=== PATIENT | male | born 1930 | race Caucasian/White ===

== ENCOUNTER 2016-09-27 18:53 | Inpatient (IN) | payer MEDICARE, OTHER ==
[~2016-09-27] VITALS: Ht 177.8 cm; Wt 69.4 kg
[2016-09-27] VITALS (7 sets, daily range): BP systolic 82–123; BP diastolic 43–82
--- NOTE | 2016-09-27 19:00 | NUR ---
PATIENT BIB RA FROM [facility] D/T LOW OXYGEN SATURATION AND RAPID HEART RATE ON MONITOR. PATIENT IS A/OX 2, BREATHING EVEN AND UNLABORED. OXYGEN SATURATION AROUND 89 ON ROOM AIR. 5 L O2 APPLIED VIA NC. SAFETY AND COMFORT MEASURS IN PLACE. NEW IV STARTED ON RAC, 18 G. BLOOD DRAWN AND SENT TO LAB. WILL CONTINUE TO MONITOR.
--- NOTE | 2016-09-27 19:10 | NUR ---
OXYGEN SATURATION AT 100% ON 5L/MIN
--- NOTE | 2016-09-27 19:12 | NUR ---
REPORT GIVEN TO TANVIR FIELDS FOR RENNY.
[2016-09-27 19:27] LABS: BASOPHILS % (AUTO) 0.2 % (0.0-2.0); HEMATOCRIT 39 % (39-51); HEMOGLOBIN 12.6 g/dL (13.5-17.5); LYMPHOCYTES # (AUTO) 0.5 /CMM (0.8-4.8); LYMPHOCYTES % (AUTO) 2.8 % (20.0-44.0); MEAN CORPUSCULAR HEMOGLOBIN 29 PG (26.0-33.0); MEAN CORPUSCULAR HGB CONC 33 g/dl (31.0-36.0); MEAN CORPUSCULAR VOLUME 91 fL (80-96); MONOCYTES # (AUTO) 0.2 /CMM (0.1-1.30); MONOCYTES % (AUTO) 0.9 % (2.0-12.0); NEUTROPHILS # (AUTO) 17.6 /CMM (1.8-8.9); NEUTROPHILS % (AUTO) 96.1 % (43.0-81.0); PLATELET COUNT (AUTO) 266 /CMM (150-450); RDW COEFFICIENT OF VARIATION 15.4 (11.5-15.0); WHITE BLOOD COUNT (AUTO) 18.3 K/uL (4.3-11.0)
[2016-09-27 19:28] LABS: CALCIUM, SERUM 8.5 mg/dL (8.5-10.1); CARBON DIOXIDE 37 mmol/L (21-32); CHLORIDE 93 mmol/L (98-107); CREATININE 1.7 mg/dL (0.6-1.3); GLUCOSE 113 mg/dL (74-106); POTASSIUM 5.3 mmol/L (3.5-5.1); SODIUM SERUM 132 mmol/L (136-145); UREA NITROGEN, BLOOD 59 mg/dL (7-18)
[2016-09-27] MEDS ORDERED: ADENOSINE 6 MG/2 ML VIAL ONE (19:28)
[2016-09-27] MEDS ORDERED: IV NS 0.9% 500 ML BAG IV ONE (19:30)
[2016-09-27] MEDS ORDERED: ADENOSINE 6 MG/2 ML VIAL IVP ONE (19:30)
[2016-09-27 19:32] LABS: INR 2.13 (0.87-1.13); PROTHROMBIN TIME 23.9 SECS (9.5-12.7)
[2016-09-27 19:34] LABS: ALANINE AMINOTRANSFERASE 25 U/L (12-78); ALBUMIN 2.7 g/dL (3.4-5.0); ALKALINE PHOSPHATASE 205 U/L (46-116); ASPARTATE AMINOTRANSFERASE 22 U/L (15-37); BILIRUBIN,DIRECT 0.1 mg/dL (0.0-0.2); BILIRUBIN,TOTAL 0.4 mg/dL (0.2-1.0); TOTAL PROTEIN, SERUM 6.8 g/dL (6.4-8.2)
[2016-09-27 19:35] LABS: TROPONIN I 0.093 ng/mL (0.00-0.056)
--- NOTE | 2016-09-27 19:35 | NUR ---
PATIENT IS SVT 140'S ON THE TELE MONITOR. ADENOSINE 6MG GIVEN FAST IVP TO RAC G18, FLUSHED PER DR MARSH'S VERBAL ORDER AT BEDSIDE. DEFIB PADS ON. CLOSE CARDIAC AND VS MONITORING ONGOING.
[2016-09-27] MEDS ORDERED: METOPROLOL TARTRATE INJ 5 MG/5 ML AMPUL ONE (19:44)
[2016-09-27] MEDS ORDERED: METOPROLOL TARTRATE INJ 5 MG/5 ML AMPUL IV ONE (20:00)
--- NOTE | 2016-09-27 20:03 | NUR ---
CALLED DIE SETTER PORTRAIT STUDIO PHOTOGRAPHER (), TRANSFERRED CALL TO
[2016-09-27] MEDS ORDERED: DIGOXIN INJ 0.5 MG/2 ML AMPUL ONE (20:10)
--- NOTE | 2016-09-27 20:10 | NUR ---
CALLED NURSING SUP. FOR ICU BED
--- NOTE | 2016-09-27 20:19 | NUR ---
DIGOXIN 250MCG GIVEN SLOW IVP, AFIB AT 130'S ON THE MONITOR, SBP MAINTAINED >90, ONGOING CARDIAC MONITORING. PATIENT REMAINS ALERT AND RESPONSIVE.
--- NOTE | 2016-09-27 20:20 | NUR ---
RT AT BEDSIDE FOR ABG.
[2016-09-27] MEDS ORDERED: DIGOXIN INJ 0.5 MG/2 ML AMPUL IV ONE (20:30)
--- NOTE | 2016-09-27 20:35 | NUR ---
STARTED A SECOND IV ON THE RIGHT HAND G20, WITH GOOD BLOOD RETURN AND FLUSHED NS WITH EASE, TAPED SECURELY.
--- NOTE | 2016-09-27 20:41 | NUR ---
BERNICE BUCKNERD, YOLANDA HART NP OBSTETRICS NURSE
--- NOTE | 2016-09-27 20:53 | NUR ---
RT PT PLACED ON BIPAP POST ABG WITH NOTED SETTING PER MD STEPHANIE HAMLIN. PT TOLERATING SETTING WELL. BIPAP PLUGGED IN TO RED OUTLET. ALARMS SET AND AUDIBLE. DISCONNECT ALARM VERIFIED. PT BREATH SOUNDS BILATERAL COARSE/RALES. WILL CONTINUE TO MONITOR. Addendum: 09/27/16 at 2054 by ASHU GEORGE RT Amended: Links added.
[2016-09-27] MEDS ORDERED: ATOR20TA PO (20:58)
[2016-09-27] MEDS ORDERED: CHOL200026 PO (20:58)
[2016-09-27] MEDS ORDERED: CALC500T3 PO (20:58)
[2016-09-27] MEDS ORDERED: SERT25TA PO (20:58)
[2016-09-27] MEDS ORDERED: METO-306 PO (20:58)
[2016-09-27] MEDS ORDERED: OMEP20CA10 PO (20:58)
[2016-09-27] MEDS ORDERED: TAMS-12 PO (20:58)
[2016-09-27] MEDS ORDERED: WARF3TAB29 PO (20:58)
[2016-09-27] MEDS ORDERED: FURO20TA4 PO (20:58)
[2016-09-27] MEDS ORDERED: LORA0.5T PO (20:58)
[2016-09-27] MEDS ORDERED: FINA5TAB4 PO (20:58)
[2016-09-27] MEDS ORDERED: FLUT1BLS IH (20:58)
[2016-09-27] MEDS ORDERED: ASPIRIN 81 MG TAB.CHEW PO ONE (21:00)
[2016-09-27] MEDS ORDERED: PIPERACILLIN /TAZOBACTAM 3.375 G in IV D5W 50 ML IV ONE (21:00)
[2016-09-27] MEDS ORDERED: LEVOFLOXACIN 750 MG /D5W 150ML 150 ML IV ONE (21:00)
[2016-09-27] MEDS ORDERED: PIPERACILLIN /TAZOBACTAM 3.375 G VIAL IV ONE (21:09)
[2016-09-27] MEDS ORDERED: ASPIRIN 81 MG TAB.CHEW ONE (21:10)
--- NOTE | 2016-09-27 21:12 | NUR ---
REPORT GIVEN TO BRAXTON RAMEY FOR ICU ADMISSION AND RENNY.
--- NOTE | 2016-09-27 21:27 | NUR ---
TRANSPORTED PATIENT TO ICU VIA ALS PROTOCOL, NO INCIDENT NOTED.
[2016-09-27] MEDS ORDERED: MAG HYDROX/AL HYDROX/SIMETH 30 ML UDC PO PRN (22:00)
[2016-09-27] MEDS ORDERED: ACETAMINOPHEN 325 MG TABLET PO PRN (22:00)
[2016-09-27] MEDS ORDERED: ONDANSETRON HCL/PF 4 MG/2 ML VIAL IVP PRN (22:00)
[2016-09-27] MEDS ORDERED: MAGNESIUM HYDROXIDE 30 ML UDC PO PRN (22:00)
[2016-09-27] MEDS ORDERED: HYDROCODONE/APAP 5/325MG 1 EACH TABLET PO PRN (22:00)
--- NOTE | 2016-09-27 22:00 | NUR ---
AUTOMOBILE GLASS TECHNICIAN: ADMISSION NOTE: RECEIVED PT FROM ER 2115, DX RESP FAILURE, AFLUTTER, ON BIPAP SATURATING 98%, NO DISTRESS. PT DENIED PAIN. MULTIPLE SKIN ISSUES NOTED, PICTURES TAKEN, WOUND CARE CONSULTED. ALL ADMISSION ASSESSMENT DONE. PT HAS POLST SHOWS CODE STATUS IS DNR/DNI, CODE STATUS DISCUSSED WITH PT'S DAUGHTER AT BEDSIDE WANTS DNR/DNI, MD AWARE. AFEBRILE, BP STABLE. HEART RATE UP AND DOWN 100-115 AFIB AND AFLUTTER. PT HAS PAST MEDICAL HISTORY OF A-FIB AND ON COUMADIN. PT WAS RECENTLY WAS ADMITTED AT [facility] FOR ELEVATED HEART RATE, CHF AND PNEUMONIA SATED BY PT'S DAUGHTER. ALL NEEDS ATTENDED. SAFETY PRECAUTION PLACED. KEEP MONITORING....
[2016-09-27] MEDS ORDERED: MEROPENEM 1 G VIAL IV ONE (22:12)
[2016-09-27] MEDS: MEROPENEM 1 G in IV NS 0.9% 100 ML IV SCH (22:21)
[2016-09-27] MEDS: IV NS 0.9% 250 ML IV PRN (22:24)
[2016-09-27 22:42] LABS: ABG BASE EXCESS 3.4 mmol/L; ABG OXYGEN SATURATION 96.7 % (92.0-98.5); ABG PCO2 61.9 mmHg (35.0-45.0); ABG PH 7.317 (7.350-7.450); ABG PO2 98.1 mmHg (75.0-100.0); AaDO2 115.9 mmHg; MetHb 0.8 % (0.0-1.5); SITE, ABG Left Radial
--- NOTE | 2016-09-27 22:45 | NUR ---
ABG DONE. RN NOTIFIED WITH THE RESULT.
--- NOTE | 2016-09-27 23:05 | NUR ---
TECHNOLOGY CONSULTANT: AT 2230 BP 82/43, NOTIFIED HOSPITAL HOUSEKEEPER YOLANDA ATKINSON ACNP, NO NEW ORDERS JUST NEED TO MONITOR FOR NOW. RECHECKED BP AR 2300: 97/62, HEART RATE 95-105 AFLUTTER AND AFIB. KEEP MONITORING.
--- NOTE | 2016-09-27 23:15 | NUR ---
DENTIST ATTENDANT: POST BIPAP ABG DONE, NUMBERS ARE IMPROVING FROM PREVIOUS ABG, PT CONTINUE ON BIPAP. NO DISTRESS.KEEP MONITORING.
[2016-09-27] MEDS: LORAZEPAM 0.5 MG TABLET PO SCH (23:17)
--- NOTE | 2016-09-27 23:17 | NUR ---
TEEN COUNSELOR; ATIVAN 0.5 MG PO NOT GIVEN DUE TO PT LOOKS DROWSY, LETHARGIC.
[2016-09-28] VITALS (48 sets, daily range): BP systolic 98–168; BP diastolic 40–122
[2016-09-28] MEDS ORDERED: VANCOMYCIN 1 GM in IV D5W 250 ML IV ONE ×2
--- NOTE | 2016-09-28 | NUR ---
BOX BLANK MACHINE FEEDER; VANCOMYCIN PHARMACY TO DOSE, 1 GM VANCOMYCIN IV X 1 VERIFIED AND ORDERED BY MITUL SOLORIO (PHARMACIST). MIDNIGHT ZOSYN NOT GVIEN BECAUSE PT HAD LAST DOSE AT 2100, WILL ADJUST TIME IN NEXT DOSE.
[2016-09-28] MEDS ORDERED: DIGOXIN INJ 0.5 MG/2 ML AMPUL ONE (02:12)
[2016-09-28] MEDS: DIGOXIN INJ 0.5 MG/2 ML AMPUL IV SCH ×3 (02:14→14:50)
[2016-09-28 04:25] LABS: ABG BASE EXCESS 0.8 mmol/L; ABG OXYGEN SATURATION 97.7 % (92.0-98.5); ABG PH 7.233 (7.350-7.450); ABG PO2 129.9 mmHg (75.0-100.0); AaDO2 107.9 mmHg; COHb 0.8 % (0.5-1.5); MetHb 0.5 % (0.0-1.5); O2Hb 96.4 % (94.0-97.0); SITE, ABG Right Brachial; VENT MODE, BG 6L NC
[2016-09-28] MEDS ORDERED: MEROPENEM 1 G VIAL IV ONE (04:42)
[2016-09-28] MEDS ORDERED: PIPERACILLIN /TAZOBACTAM 3.375 G VIAL IV ONE (04:42)
[2016-09-28] MEDS: PIPERACILLIN /TAZOBACTAM 3.375 G in IV D5W 50 ML IV SCH ×6 (04:53→23:34)
[2016-09-28 04:54] LABS: HEMATOCRIT 34 % (39-51); HEMOGLOBIN 11.2 g/dL (13.5-17.5); LYMPHOCYTES # (AUTO) 0.8 /CMM (0.8-4.8); LYMPHOCYTES % (AUTO) 5.6 % (20.0-44.0); MEAN CORPUSCULAR HEMOGLOBIN 30 PG (26.0-33.0); MEAN CORPUSCULAR HGB CONC 33 g/dl (31.0-36.0); MEAN CORPUSCULAR VOLUME 91 fL (80-96); MONOCYTES # (AUTO) 0.6 /CMM (0.1-1.30); MONOCYTES % (AUTO) 3.9 % (2.0-12.0); NEUTROPHILS # (AUTO) 13.2 /CMM (1.8-8.9); NEUTROPHILS % (AUTO) 90.5 % (43.0-81.0); PLATELET COUNT (AUTO) 200 /CMM (150-450); RDW COEFFICIENT OF VARIATION 16.2 (11.5-15.0); RED BLOOD CELL COUNT(AUTO) 3.73 MIL/uL (4.5-6.0); WHITE BLOOD COUNT (AUTO) 14.6 K/uL (4.3-11.0)
[2016-09-28] MEDS: LORAZEPAM 0.5 MG TABLET PO SCH (04:55)
[2016-09-28 05:22] LABS: TROPONIN I 0.109 ng/mL (0.00-0.056)
[2016-09-28 05:23] LABS: CALCIUM, SERUM 7.7 mg/dL (8.5-10.1); CARBON DIOXIDE 35 mmol/L (21-32); CHLORIDE 96 mmol/L (98-107); CHOLESTEROL 128 mg/dL (<200); CREATININE 1.7 mg/dL (0.6-1.3); GLUCOSE 82 mg/dL (74-106); HDL CHOLESTEROL 42 mg/dL (40-60); LDL 74 mg/dL (0-99); PHOSPHORUS 5.4 mg/dL (2.5-4.9); POTASSIUM 4.5 mmol/L (3.5-5.1); SODIUM SERUM 136 mmol/L (136-145); THYROID STIMULATING HORMONE 0.996 uIU/mL (0.358-3.74); TRIGLYCERIDES 97 mg/dL (30-150); UREA NITROGEN, BLOOD 57 mg/dL (7-18)
[2016-09-28] MEDS: MEROPENEM 1 G in IV NS 0.9% 100 ML IV SCH ×2 (05:39→17:12)
[2016-09-28] MEDS ORDERED: FEE PK DOSING 1 MIN EA MC ONE (07:01)
[2016-09-28] MEDS: PANTOPRAZOLE 40 MG TABLET.DR PO SCH (07:21)
[2016-09-28] MEDS ORDERED: METOPROLOL SUCCINATE 50 MG TAB.SR.24H PO SCH (09:00)
[2016-09-28] MEDS: SERTRALINE HCL 25 MG TABLET PO SCH (09:00)
[2016-09-28] MEDS: FLUTICASONE/VILANTEROL 1 EACH BLST.W.DEV IH SCH (09:00)
[2016-09-28] MEDS: CALCIUM CARBONATE (1250) 500 MG TABLET PO SCH ×3 (09:00→16:38)
[2016-09-28] MEDS: FINASTERIDE (5 MG) 5 MG TABLET PO SCH (09:00)
[2016-09-28] MEDS: CHOLECALCIFEROL 1,000 UNIT TABLET (VIT D3) PO SCH (09:00)
[2016-09-28] MEDS ORDERED: LORAZEPAM 0.5 MG TABLET PO PRN (10:30)
[2016-09-28] MEDS: methylPREDNISolone SOD SUCC 125 MG/2ML VIAL IV SCH ×2 (11:14→17:12)
--- NOTE | 2016-09-28 14:00 | NUR ---
ACCOUNTING SYSTEMS MANAGER- DR. CHAVES AT BEDSIDE. PT TO START ON DIGOXIN 0.25 MG IV DAILY FOR HEART RATE CONTROL, FIRST DOSE TO BE GIVEN NOW. VITAL SIGNS STABLE. WILL ADMINISTER MED ORDERED. WILL CONTINUE TO MONITOR.
[2016-09-28] MEDS: IPRATROPIUM NEB FS 0.5 MG/2.5 ML AMPUL.NEB NEB SCH ×2 (14:45→21:13)
[2016-09-28] MEDS: WARFARIN SODIUM 1 MG TABLET PO SCH (16:37)
[2016-09-28] MEDS: TAMSULOSIN 0.4 MG CAP.SR.24H PO SCH (17:02)
--- NOTE | 2016-09-28 18:27 | NUR ---
HERB DOCTOR- URINE CULTURE OBTAINED. CALLED LAB FOR ROUSTABOUT CREW. WILL CONTINUE TO MONITOR.
[2016-09-28 20:42] LABS: APPEARANCE,URINE TURBID (CLEAR); BILIRUBIN,URINE NEGATIVE (NEGATIVE); BLOOD, URINE 3+ Ery/uL (NEGATIVE); COLOR,URINE YELLOW (YELLOW); KETONES,URINE NEGATIVE (NEGATIVE); LEUKOCYTE ESTERASE ,URINE NEGATIVE (NEGATIVE); NITRITE, URINE NEGATIVE (NEGATIVE); PROTEIN,URINE NEGATIVE (NEGATIVE); UGLUCOSE NEGATIVE (NEGATIVE); UROBILINOGEN,URINE 0.2 EU/dL (0.2)
[2016-09-28 21:01] LABS: BACTERIA,URINE Few /HPF (None Seen); RBC,URINE TOO NUMEROUS TO COUN /HPF (0-2); SQUAMOUS EPITHELIAL CELL,UR Rare /HPF (None Seen); WBC,URINE 0-2 /HPF (0-3)
[2016-09-28] MEDS: ATORVASTATIN 10 MG TABLET PO SCH (21:15)
--- NOTE | 2016-09-28 21:15 | NUR ---
HEAD MEN'S TENNIS COACH: PT IS HIGH RISK OF ASPIRATION, UNABLE TO SWALLOW, CONTINUE ON BIPAP, LIPITOR HELD DUE TO THESE REASON.
[2016-09-29] VITALS (28 sets, daily range): BP systolic 109–170; BP diastolic 52–81
[2016-09-29] MEDS ORDERED: VANCOMYCIN 1 GM in IV D5W 250 ML IV SCH ×2
[2016-09-29] MEDS: IPRATROPIUM NEB FS 0.5 MG/2.5 ML AMPUL.NEB NEB SCH ×4 (01:46→19:45)
[2016-09-29 04:43] LABS: BASOPHILS % (AUTO) 0.1 % (0.0-2.0); EOSINOPHILS % (AUTO) 0.2 % (0.0-6.0); HEMATOCRIT 35 % (39-51); HEMOGLOBIN 11.5 g/dL (13.5-17.5); LYMPHOCYTES # (AUTO) 0.4 /CMM (0.8-4.8); LYMPHOCYTES % (AUTO) 3.2 % (20.0-44.0); MEAN CORPUSCULAR HEMOGLOBIN 30 PG (26.0-33.0); MEAN CORPUSCULAR HGB CONC 33 g/dl (31.0-36.0); MEAN CORPUSCULAR VOLUME 91 fL (80-96); MONOCYTES # (AUTO) 0.1 /CMM (0.1-1.30); MONOCYTES % (AUTO) 0.7 % (2.0-12.0); NEUTROPHILS # (AUTO) 13.2 /CMM (1.8-8.9); NEUTROPHILS % (AUTO) 95.8 % (43.0-81.0); PLATELET COUNT (AUTO) 203 /CMM (150-450); RDW COEFFICIENT OF VARIATION 16.6 (11.5-15.0); RED BLOOD CELL COUNT(AUTO) 3.87 MIL/uL (4.5-6.0); WHITE BLOOD COUNT (AUTO) 13.7 K/uL (4.3-11.0)
[2016-09-29] MEDS: MEROPENEM 1 G in IV NS 0.9% 100 ML IV SCH ×2 (04:52→17:04)
[2016-09-29] MEDS: IV NS 0.9% 250 ML IV PRN (04:52)
[2016-09-29 04:57] LABS: CALCIUM, SERUM 8.4 mg/dL (8.5-10.1); CARBON DIOXIDE 34 mmol/L (21-32); CHLORIDE 99 mmol/L (98-107); CREATININE 1.3 mg/dL (0.6-1.3); GLUCOSE 103 mg/dL (74-106); MAGNESIUM 2.4 mg/dL (1.8-2.4); PHOSPHORUS 4.2 mg/dL (2.5-4.9); POTASSIUM 4.3 mmol/L (3.5-5.1); SODIUM SERUM 138 mmol/L (136-145); UREA NITROGEN, BLOOD 53 mg/dL (7-18)
[2016-09-29] MEDS: PIPERACILLIN /TAZOBACTAM 3.375 G in IV D5W 50 ML IV SCH ×3 (05:55→17:35)
--- NOTE | 2016-09-29 07:27 | NUR ---
WOUND CARE CONSULT PATIENT SEEN AND SKIN INTEGRITY ASSESSMENT DONE. SEE TAPPER HAND ASSESSMENT IN PCS FOR TODAY ALONG WITH ALL RECOMMENDATIONS. PATIENT WITH CURRENT BAY AT 13. PATIENT NOTED TO HAVE VERY FRAGILE SKIN AND MULTIPLE AREAS OF BRUISING. ALL TREATMENT PLANS DISCUSSED WITH MD AND MD IN AGREEMENT. ALL DISCUSSED WITH NURSING AT THE BEDSIDE. 1ST STEP LOW AIRLOSS MATTRESS IN USE FOR SKIN MANAGEMENT. CONTINUE Q 2 HOUR TURNING SCHED PATIENT CONDITION PERMITS, BILATERAL HEEL FLOATING, AND ZGUARD FOR SKIN/MOISTURE MANAGEMENT. RECOMMEND SURGICAL CONSULT FOR LOWER EXTREMITY ULCERS AND ELBOW ULCER. Addendum: 09/29/16 at 0730 by ESTEBAN GASPAR WNDNU Amended: Links added.
[2016-09-29] MEDS: PANTOPRAZOLE 40 MG TABLET.DR PO SCH (07:30)
--- NOTE | 2016-09-29 08:00 | NUR ---
pt placed on 4lpm. will cont. to monitor. pending abg
[2016-09-29] MEDS: CALCIUM CARBONATE (1250) 500 MG TABLET PO SCH ×3 (08:22→17:00)
[2016-09-29] MEDS: FINASTERIDE (5 MG) 5 MG TABLET PO SCH (08:22)
[2016-09-29] MEDS: SERTRALINE HCL 25 MG TABLET PO SCH (08:23)
[2016-09-29] MEDS: CHOLECALCIFEROL 1,000 UNIT TABLET (VIT D3) PO SCH (08:23)
[2016-09-29] MEDS: methylPREDNISolone SOD SUCC 125 MG/2ML VIAL IV SCH ×2 (08:31→17:04)
[2016-09-29] MEDS: NEOMY SULF/BACITRAC ZN/POLY 15 GM TUBE TP SCH (08:32)
[2016-09-29] MEDS: FLUTICASONE/VILANTEROL 1 EACH BLST.W.DEV IH SCH (08:32)
[2016-09-29] MEDS: CADEXOMER IODINE 40 GM TUBE TP SCH (08:32)
[2016-09-29] MEDS: PANTOPRAZOLE 40 MG VIAL IV SCH (10:38)
[2016-09-29 12:02] LABS: ABG BASE EXCESS 8.5 mmol/L; ABG OXYGEN SATURATION 94.9 % (92.0-98.5); ABG PCO2 51.1 mmHg (35.0-45.0); ABG PH 7.441 (7.350-7.450); AaDO2 99.6 mmHg; MetHb 0.9 % (0.0-1.5); O2Hb 93.1 % (94.0-97.0); SITE, ABG Right Radial; VENT MODE, BG NASAL CANNULA
[2016-09-29] MEDS ORDERED: MORPHINE SULFATE INJ 2 MG/ML DISP.SYRIN IV PRN (13:00)
[2016-09-29] MEDS: DIGOXIN INJ 0.5 MG/2 ML AMPUL IV SCH (13:37)
[2016-09-29] MEDS ORDERED: AMIODARONE 900 MG in IV D5W 482 ML IV PRN (16:30)
[2016-09-29] MEDS ORDERED: AMIODARONE 150 MG in IV D5W 100 ML IV ONE (16:30)
[2016-09-29] MEDS: WARFARIN SODIUM 1 MG TABLET PO SCH (17:00)
[2016-09-29] MEDS: TAMSULOSIN 0.4 MG CAP.SR.24H PO SCH (17:01)
[2016-09-29] MEDS: VANCOMYCIN 1 GM in IV D5W 250 ML IV SCH (18:18)
--- NOTE | 2016-09-29 18:26 | NUR ---
COGNOS BI DEVELOPER NOTE Received patient awake, A/Ox3, noted with hard of hearing. On Bipap, placed on 4LPM of O2 via NC, tolerated at this time, O2 sat 97%. Noted with increased RR but able to lower it when told. ABG done, Dr. Lemus aware, continue on 4LPM of O2 via NC. Unable to tolerate PO meds, tried ice chips but patient said he is unable to swallow good and risk for aspiration. Remained NPO for now Patient with episode of c/o brining sensation when urinating, aware awaiting for final result for UA CS, no fever. said he wants pain med, informed Dr. Abreu with order of Morphine because NPO. Given and patient verbalized relief. Cleaned patient with x3 wet diapers and one good semiformed BM. @ 1630, Dr. Mcmillan visited and noted Afib 120's and ordered to DC Dig and start on Amio load and drip. Family and patient aware. Received MRSA nares result +, obtained Bactroban order, placed on isolation, family aware. Patient on Afib 90's at this time. No significant changes. No respiratory distress noted. No more c/o dysuria. Isoaltion precaution maintained and observed.
--- NOTE | 2016-09-29 19:08 | NUR ---
KNIFE FINISHER: RECEIVED PT ANNAO X3, ON AMIODARONE DRIP RUNNING AT 1 MG/MIN FOR CONTINUE HAVING UNCONTROLLED AFIB STARTED AT 1700, STILL AFIB ON MONITOR RATE OF 90-100, PT DENIED PAIN. TITRATED OFF FROM BIPAP SINCE 0800 AM, ON 4 L NS SATURATING 94-97%, NO DISTRESS. IV ACCESS INTACT. SAFETY PRECAUTION PLACED. FULL ASSESSMENT SEE ON FLOW SHEET. BP STABLE. KEEP MONITORING...
[2016-09-29] MEDS: ATORVASTATIN 10 MG TABLET PO SCH (20:46)
[2016-09-29] MEDS: MUPIROCIN OINT 2% 22 GM TUBE SCH (20:46)
[2016-09-29] MEDS ORDERED: METOPROLOL TARTRATE 50 MG TABLET PO SCH (21:00)
[2016-09-30] VITALS (30 sets, daily range): BP systolic 101–161; BP diastolic 51–92
[2016-09-30] MEDS: PIPERACILLIN /TAZOBACTAM 3.375 G in IV D5W 50 ML IV SCH ×5 (00:01→23:41)
[2016-09-30] MEDS: IPRATROPIUM NEB FS 0.5 MG/2.5 ML AMPUL.NEB NEB SCH ×4 (00:37→19:21)
[2016-09-30] MEDS: IV NS 0.9% 250 ML IV PRN (04:32)
[2016-09-30 04:44] LABS: HEMATOCRIT 35 % (39-51); HEMOGLOBIN 11.5 g/dL (13.5-17.5); LYMPHOCYTES # (AUTO) 0.5 /CMM (0.8-4.8); LYMPHOCYTES % (AUTO) 3.6 % (20.0-44.0); MEAN CORPUSCULAR HEMOGLOBIN 30 PG (26.0-33.0); MEAN CORPUSCULAR HGB CONC 33 g/dl (31.0-36.0); MEAN CORPUSCULAR VOLUME 92 fL (80-96); MONOCYTES # (AUTO) 0.3 /CMM (0.1-1.30); NEUTROPHILS # (AUTO) 14.1 /CMM (1.8-8.9); NEUTROPHILS % (AUTO) 94.4 % (43.0-81.0); PLATELET COUNT (AUTO) 206 /CMM (150-450); RDW COEFFICIENT OF VARIATION 16.7 (11.5-15.0); RED BLOOD CELL COUNT(AUTO) 3.84 MIL/uL (4.5-6.0); WHITE BLOOD COUNT (AUTO) 14.9 K/uL (4.3-11.0)
[2016-09-30 04:54] LABS: CALCIUM, SERUM 8.5 mg/dL (8.5-10.1); CARBON DIOXIDE 39 mmol/L (21-32); CHLORIDE 100 mmol/L (98-107); CREATININE 1.3 mg/dL (0.6-1.3); GLUCOSE 156 mg/dL (74-106); MAGNESIUM 2.5 mg/dL (1.8-2.4); PHOSPHORUS 4.6 mg/dL (2.5-4.9); POTASSIUM 4.4 mmol/L (3.5-5.1); SODIUM SERUM 139 mmol/L (136-145); UREA NITROGEN, BLOOD 46 mg/dL (7-18)
[2016-09-30] MEDS: MEROPENEM 1 G in IV NS 0.9% 100 ML IV SCH ×2 (04:56→18:07)
[2016-09-30 05:34] LABS: LYMPHOCYTES % (MANUAL) 8 % (16-48); MONOCYTES % (MANUAL) 1 % (0-11.0); NEUTROPHILS % (MANUAL) 91 (42-76)
--- NOTE | 2016-09-30 05:37 | NUR ---
AUTOMOTIVE PRODUCT ENGINEER: RHYTHM CONVERTED TO SINUS AT 0450, STILL ON AMIODARONE DRIP AT 0.5 MG/MIN. ON 3 L NC SATURATING 92-93%. COMPLETE BED BATH GIVEN. KEEP MONITORING. Addendum: 09/30/16 at 0603 by SARAH LONGORIA RN Error: AMIODARONE DRIP STOPPED AT 0530 DUE TO LOW HEART RATE 58-60, BEEN CONTINUE GOING DOWN..
--- NOTE | 2016-09-30 06:07 | NUR ---
CONTRACTOR GENERAL BUILDING: SEEN AND EXAMINED BY DR JOHN FIREMAN HELPER, MADE AWARE AMIODARONE DRIP STOPPED AT 0530 AM DUE TO CONTINUE GOING DOWN HEART RATE 58-60 AND RHYTHM CONVERTED TO SINUS AT 0450 AM.
--- NOTE | 2016-09-30 07:45 | NUR ---
ICU/RN - Notes Received pt in bed lethargic, arousable to deep stimuli. Pt was medicated with Ativan overnight d/t complaints of not being able to sleep, per PM nurse. On telemetry reading SR 60's. On o2 at 4lpm via nasal cannula. IV patent and intact. Safety and comfort measures in place. Pt repositioned for comfort. Will continue to monitor pt closely.
[2016-09-30] MEDS: methylPREDNISolone SOD SUCC 125 MG/2ML VIAL IV SCH ×2 (08:28→16:54)
[2016-09-30] MEDS: PANTOPRAZOLE 40 MG VIAL IV SCH (08:28)
[2016-09-30] MEDS: FLUTICASONE/VILANTEROL 1 EACH BLST.W.DEV IH SCH (08:30)
[2016-09-30] MEDS: AMIODARONE HCL 200 MG TABLET PO SCH ×3 (09:00→16:03)
[2016-09-30] MEDS: CALCIUM CARBONATE (1250) 500 MG TABLET PO SCH ×3 (09:00→16:03)
[2016-09-30] MEDS: SERTRALINE HCL 25 MG TABLET PO SCH (09:00)
[2016-09-30] MEDS: CHOLECALCIFEROL 1,000 UNIT TABLET (VIT D3) PO SCH (09:00)
[2016-09-30] MEDS: FINASTERIDE (5 MG) 5 MG TABLET PO SCH (09:00)
--- NOTE | 2016-09-30 09:00 | NUR ---
ICU/RN - Notes Pt too lethargic at this time, PO medications held due to risk for aspiration.
[2016-09-30] MEDS: MUPIROCIN OINT 2% 22 GM TUBE SCH ×2 (09:19→21:54)
[2016-09-30] MEDS: NEOMY SULF/BACITRAC ZN/POLY 15 GM TUBE TP SCH (09:20)
[2016-09-30] MEDS: CADEXOMER IODINE 40 GM TUBE TP SCH (09:20)
[2016-09-30] MEDS: NITROGLYCERIN 30 GM TUBE TP SCH ×2 (09:21→21:56)
[2016-09-30 09:27] LABS: IRON, SERUM 66 ug/dl (50-175); TOTAL IRON BINDING CAPACITY 214 ug/dl (250-450)
[2016-09-30 09:41] LABS: FERRITIN 314 ng/mL (8-388)
[2016-09-30] MEDS: VANCOMYCIN 1 GM in IV D5W 250 ML IV SCH (11:35)
[2016-09-30 12:01] LABS: ABG BASE EXCESS 7.5 mmol/L; ABG OXYGEN SATURATION 92.8 % (92.0-98.5); ABG PCO2 115.7 mmHg (35.0-45.0); ABG PH 7.155 (7.350-7.450); ABG PO2 77.7 mmHg (75.0-100.0); AaDO2 15.1 mmHg; MetHb 0.9 % (0.0-1.5); SITE, ABG Left Brachial; VENT MODE, BG NASAL CANNULA
--- NOTE | 2016-09-30 12:03 | NUR ---
ICU/RN - Notes Pt still noted with lethargy, ABG ordered and results relayed to Dr Lemus. Pt placed back on BiPap by Greg. EREN
--- NOTE | 2016-09-30 12:07 | NUR ---
RT STAT ABG DONE DUE TO PT SHOWING SIGNS OF BEING LETHARGIC. ABG RESULTS SHOWED TO CHARGE NURSE AND RN. PT PLACED BACK ON BIPAP WITH NOTED SETTINGS. PT APPEARS TO BE BREATHING COMFORTABLY, WILL CONTINUE TO MONITOR. Addendum: 09/30/16 at 1210 by SINA GONSALVES RT Amended: Links added.
--- NOTE | 2016-09-30 13:05 | NUR ---
ICU/RN - Notes Attempted to insert NG tube, but unsuccessful. Charge nurse made aware.
--- NOTE | 2016-09-30 13:14 | NUR ---
D/W DR JOHN ALL MEDS AND PT'S INABILITY TO SWALLOW. CANNOT PASS NGT OR NASOTRACHEAL SUCTION NEITHER CATHETER WILL GO DOWN RESPECTIVE OPENING. PT FOR FULL DOSE LOVENOX AND CAN HOLD PO MEDS INCLUDING AMIODARONE
[2016-09-30 15:19] LABS: ABG BASE EXCESS 8.1 mmol/L; ABG OXYGEN SATURATION 97.3 % (92.0-98.5); ABG PCO2 70.3 mmHg (35.0-45.0); ABG PO2 104.5 mmHg (75.0-100.0); AaDO2 99.9 mmHg; COHb 0.8 % (0.5-1.5); MetHb 0.9 % (0.0-1.5); O2Hb 95.6 % (94.0-97.0); SITE, ABG Right Radial; VENT MODE, BG 18/5
[2016-09-30] MEDS: TAMSULOSIN 0.4 MG CAP.SR.24H PO SCH (17:55)
--- NOTE | 2016-09-30 18:33 | NUR ---
ICU/RN - Notes Pt more awake and alert, on Bipap. Pt repositioned for comfort.
--- NOTE | 2016-09-30 19:45 | NUR ---
ICU/MANAGER REQUIREMENTS RECEIVED REPORT FROM DAY NURSE. PT IS RESPONDS TO VOICE, AND OPENS EYES. PT IS BIPAP MASK TOLERATING CURRENT SETTINGS, SATURATION IS 99%. PT IS CURRENTLY SR ON THE MONITOR. PT IS CURRENTLY NPO. PT HAS DIAPER ON, CURRENTLY DRY. PT HAS A FEW SKIN SKIN ISSUES THAT ARE ADDRESSED ON THE FLOW SHEET. REPOSITIONED FOR COMFORT AND CARE. NO ACUTE DISTRESS SEEN AT THIS TIME, PT APPEARS COMFORTABLE. WILL MONITOR PT.
[2016-09-30] MEDS ORDERED: ENOXAPARIN SODIUM 80 MG/0.8 ML DISP.SYRIN SQ SCH (21:00)
[2016-09-30] MEDS: ATORVASTATIN 10 MG TABLET PO SCH (21:56)
--- NOTE | 2016-09-30 22:05 | NUR ---
ICU/RESIDENTIAL INSURANCE INSPECTOR PT'S DAUGHTER CALLED, ASKED IF THERE WAS ANY CHANGE IN STATUS, WAS HERE EARLIER KNOW THAT PT WAS ON BIPAP. THEN SAID SHE'LL BE IN TOMORROW TO SEE HER DAD.
[2016-10-01] VITALS (35 sets, daily range): BP systolic 98–137; BP diastolic 49–81
[2016-10-01] MEDS: IPRATROPIUM NEB FS 0.5 MG/2.5 ML AMPUL.NEB NEB SCH ×4 (01:11→19:39)
--- NOTE | 2016-10-01 02:10 | NUR ---
ICU/FIELD TRAINING AGENT PT WAS GIVEN AM CARE, ALONG WITH ORAL CARE. NOTICED THAT PT HAS LOTS OF BLOOD IN MOUTH. PT'S ARM'S ARE BLEEDING TOO. RIGHT ARM, WHERE IV HEPLOCK IS. THEN THE LEFT ELBOW HAS A MEPILEX, THE WAS BLOODY WHICH WAS CHANGED. ALSO THE RIGHT KNEE ALSO VERY BLOODY, APPLIED MEPILEX WITH KERLEX TO BOTH ARM AND LEG THEN WRAPPED WITH KERLEX TO HELP STOP BLEEDING. PT WAS THEN TURNED AND REPOSITIONED FOR COMFORT AND CARE. PT APPEARS COMFORTABLE AND MORE ALERT THAN IN BARB IN THE SHIFT.
--- NOTE | 2016-10-01 04:31 | NUR ---
ICU/DISPLAY COORDINATOR AM LABS WERE DRAWN. AWAIT RESULTS. PT WAS TURNED AND REPOSITIONED FOR COMFORT AND CARE.
[2016-10-01 04:39] LABS: HEMATOCRIT 30 % (39-51); LYMPHOCYTES # (AUTO) 0.3 /CMM (0.8-4.8); LYMPHOCYTES % (AUTO) 2.1 % (20.0-44.0); MEAN CORPUSCULAR HEMOGLOBIN 30 PG (26.0-33.0); MEAN CORPUSCULAR HGB CONC 33 g/dl (31.0-36.0); MEAN CORPUSCULAR VOLUME 91 fL (80-96); MONOCYTES # (AUTO) 0.5 /CMM (0.1-1.30); MONOCYTES % (AUTO) 3.4 % (2.0-12.0); NEUTROPHILS # (AUTO) 13.7 /CMM (1.8-8.9); NEUTROPHILS % (AUTO) 94.5 % (43.0-81.0); PLATELET COUNT (AUTO) 181 /CMM (150-450); RDW COEFFICIENT OF VARIATION 16.5 (11.5-15.0); RED BLOOD CELL COUNT(AUTO) 3.32 MIL/uL (4.5-6.0); WHITE BLOOD COUNT (AUTO) 14.5 K/uL (4.3-11.0)
[2016-10-01 04:56] LABS: CALCIUM, SERUM 8.4 mg/dL (8.5-10.1); CARBON DIOXIDE 37 mmol/L (21-32); CHLORIDE 102 mmol/L (98-107); CREATININE 1.3 mg/dL (0.6-1.3); GLUCOSE 88 mg/dL (74-106); MAGNESIUM 2.3 mg/dL (1.8-2.4); PHOSPHORUS 2.8 mg/dL (2.5-4.9); POTASSIUM 4.2 mmol/L (3.5-5.1); SODIUM SERUM 142 mmol/L (136-145); UREA NITROGEN, BLOOD 51 mg/dL (7-18); VANCOMYCIN,TROUGH 29 ug/ml (12-20)
[2016-10-01] MEDS: PIPERACILLIN /TAZOBACTAM 3.375 G in IV D5W 50 ML IV SCH ×4 (05:09→23:20)
[2016-10-01 05:15] LABS: BAND % (MANUAL) 1 % (0.0-5.0); LYMPHOCYTES % (MANUAL) 2 % (16-48); MONOCYTES % (MANUAL) 3 % (0-11.0); NEUTROPHILS % (MANUAL) 94 (42-76)
[2016-10-01 05:33] LABS: INR 3.05 (0.87-1.13); PROTHROMBIN TIME 35.1 SECS (9.5-12.7)
[2016-10-01] MEDS: MEROPENEM 1 G in IV NS 0.9% 100 ML IV SCH ×2 (05:33→17:40)
[2016-10-01] MEDS: IV NS 0.9% 250 ML IV PRN (05:34)
[2016-10-01] MEDS: VANCOMYCIN 1 GM in IV D5W 250 ML IV SCH (05:35)
--- NOTE | 2016-10-01 06:00 | NUR ---
ICU/PROJECT DEVELOPER VANCO LEVEL IS 29, CHARGE NURSE MADE AWARE OF THIS. [facility] IVPB IS HELD FOR 0600. PT WAS TURNED AND REPOSITIONED FOR COMFORT AND CARE. NO ACUTE DISTRESS SEEN AT THIS TIME. PT APPEARS COMFORTABLE, AWAKE AND ALERT MORE SO THAN YESTERDAY.
--- NOTE | 2016-10-01 08:05 | NUR ---
PT TAKEN OFF BIPAP AND PLACED ON 2LPM NC. WILL TITRATE FIO2 TO KEEP SATS 88%-94% SPO2. ABG TO BE DONE.
--- NOTE | 2016-10-01 08:28 | NUR ---
PT PLACED BACK ON BIPAP DUE TO RESP. DISTRESS. SAME SETTINGS PREVIOUSLY CHARTED.
--- NOTE | 2016-10-01 08:30 | NUR ---
ICU/RN - Notes Pt unable to tolerate low flow O2 via nasal cannula, manifests with heart rate up to 120's, tachypnea RR 40's, SpO2 83-85%, and complains of shortness of breath. RT Ramos placed pt back on BiPap.
[2016-10-01] MEDS: SERTRALINE HCL 25 MG TABLET PO SCH (08:43)
[2016-10-01] MEDS: CALCIUM CARBONATE (1250) 500 MG TABLET PO SCH ×3 (08:43→16:07)
[2016-10-01] MEDS: FINASTERIDE (5 MG) 5 MG TABLET PO SCH (08:43)
[2016-10-01] MEDS: CHOLECALCIFEROL 1,000 UNIT TABLET (VIT D3) PO SCH (08:43)
[2016-10-01] MEDS: AMIODARONE HCL 200 MG TABLET PO SCH ×2 (08:43→12:46)
[2016-10-01] MEDS: FLUTICASONE/VILANTEROL 1 EACH BLST.W.DEV IH SCH (08:44)
[2016-10-01] MEDS: CADEXOMER IODINE 40 GM TUBE TP SCH (08:46)
[2016-10-01] MEDS: MUPIROCIN OINT 2% 22 GM TUBE SCH ×2 (08:46→21:28)
[2016-10-01] MEDS: Z GUARD REMEDY 2 OZ OINT TP PRN (08:47)
[2016-10-01] MEDS: NEOMY SULF/BACITRAC ZN/POLY 15 GM TUBE TP SCH (08:47)
[2016-10-01] MEDS: methylPREDNISolone SOD SUCC 125 MG/2ML VIAL IV SCH ×2 (08:50→16:09)
[2016-10-01] MEDS: NITROGLYCERIN 30 GM TUBE TP SCH ×2 (08:51→21:27)
[2016-10-01] MEDS ORDERED: ENOXAPARIN SODIUM 80 MG/0.8 ML DISP.SYRIN SQ SCH ×2 (09:00→21:00)
--- NOTE | 2016-10-01 09:45 | NUR ---
ICU/RN - Notes AM care carried out. Dried blood noted in pt mouth, oral care done. Pt's skin tear on left arm and right knee noted to be bleeding excessively. Dressing reinforced. Dr Lemus made aware of pt's adverse bleeding and INR level this AM, with orders to discontinue Lovenox. Pt repositioned for comfort.
[2016-10-01] MEDS: PANTOPRAZOLE 40 MG VIAL IV SCH (09:48)
[2016-10-01 10:29] LABS: ABG BASE EXCESS 9.8 mmol/L; ABG OXYGEN SATURATION 92.4 % (92.0-98.5); ABG PCO2 49.1 mmHg (35.0-45.0); ABG PH 7.468 (7.350-7.450); ABG PO2 66.7 mmHg (75.0-100.0); AaDO2 89.5 mmHg; COHb 0.3 % (0.5-1.5); MetHb 2.1 % (0.0-1.5); O2Hb 90.2 % (94.0-97.0); PEEP,BG 5 cm H2O; SITE, ABG Right Radial
--- NOTE | 2016-10-01 16:42 | NUR ---
ICU/RN - Notes Pt's heart rhythm Aflutter from 110-120's. Dr Belcher made aware with orders to start Amiodorone gtt. Will carry out.
[2016-10-01] MEDS: AMIODARONE 900 MG in IV D5W 482 ML IV PRN (16:54)
[2016-10-01] MEDS: TAMSULOSIN 0.4 MG CAP.SR.24H PO SCH (17:01)
--- NOTE | 2016-10-01 20:00 | NUR ---
PRODUCT DEVELOPMENT CONSULTANT - NOTES - RECEIVED PT IN BED, PT IS AOX 1-2, RESPONDS TO VOICE, AND OPENS EYES. PT IS ON BIPAP MASK TOLERATING CURRENT SETTINGS, SATURATION IS 99%. PT IS CURRENTLY AFIB ON THE MONITOR. PT IS CURRENTLY NPO. PT HAS DIAPER ON, CURRENTLY DRY. PT HAS A FEW SKIN SKIN ISSUES THAT ARE ADDRESSED ON THE FLOW SHEET. REPOSITIONED FOR COMFORT AND CARE. NO ACUTE DISTRESS SEEN AT THIS TIME, PT APPEARS COMFORTABLE. WILL MONITOR PT.
[2016-10-01] MEDS: ATORVASTATIN 10 MG TABLET PO SCH (22:00)
--- NOTE | 2016-10-01 22:00 | NUR ---
PT REFUSED TO TAKE PO MEDS, HE EVEN REFUSED TO EAT APPLE SAUCE, NON ADMIN MEDS DOCUMENTED IN EMAR
[2016-10-02] VITALS (30 sets, daily range): BP systolic 82–128; BP diastolic 52–76
[2016-10-02] MEDS: IPRATROPIUM NEB FS 0.5 MG/2.5 ML AMPUL.NEB NEB SCH ×4 (01:24→19:30)
--- NOTE | 2016-10-02 03:00 | NUR ---
PT NOTED WITH BLEEDING FROM RIGHT KNEE WOUND AND LEFT ELBOW. THERE WAS MEPILEX ON BOTH WOUNDS, DID NOT REMOVE TO AVOID EXCESSIVE BLEEDING, ALL DRESSINGS REINFORCED
--- NOTE | 2016-10-02 04:33 | NUR ---
PT IS A HARD STICK ACCORDING TO LAB
[2016-10-02 05:00] LABS: BASOPHILS % (AUTO) 0.1 % (0.0-2.0); HEMATOCRIT 27 % (39-51); LYMPHOCYTES # (AUTO) 0.3 /CMM (0.8-4.8); LYMPHOCYTES % (AUTO) 2.3 % (20.0-44.0); MEAN CORPUSCULAR HEMOGLOBIN 30 PG (26.0-33.0); MEAN CORPUSCULAR HGB CONC 33 g/dl (31.0-36.0); MEAN CORPUSCULAR VOLUME 91 fL (80-96); MONOCYTES # (AUTO) 0.3 /CMM (0.1-1.30); MONOCYTES % (AUTO) 2.5 % (2.0-12.0); NEUTROPHILS # (AUTO) 12.2 /CMM (1.8-8.9); NEUTROPHILS % (AUTO) 95.1 % (43.0-81.0); PLATELET COUNT (AUTO) 159 /CMM (150-450); RDW COEFFICIENT OF VARIATION 16.4 (11.5-15.0); RED BLOOD CELL COUNT(AUTO) 2.98 MIL/uL (4.5-6.0); WHITE BLOOD COUNT (AUTO) 12.8 K/uL (4.3-11.0)
[2016-10-02] MEDS: PIPERACILLIN /TAZOBACTAM 3.375 G in IV D5W 50 ML IV SCH ×3 (05:07→17:23)
[2016-10-02] MEDS: MEROPENEM 1 G in IV NS 0.9% 100 ML IV SCH ×2 (05:08→17:29)
[2016-10-02 05:19] LABS: CALCIUM, SERUM 8.2 mg/dL (8.5-10.1); CARBON DIOXIDE 36 mmol/L (21-32); CHLORIDE 105 mmol/L (98-107); CREATININE 1.4 mg/dL (0.6-1.3); GLUCOSE 120 mg/dL (74-106); MAGNESIUM 2.4 mg/dL (1.8-2.4); PHOSPHORUS 3.4 mg/dL (2.5-4.9); SODIUM SERUM 146 mmol/L (136-145); UREA NITROGEN, BLOOD 56 mg/dL (7-18)
[2016-10-02] MEDS: IV NS 0.9% 250 ML IV PRN (05:23)
[2016-10-02 06:05] LABS: D-DIMER 0.78 mg/L(FEU (0.17-0.50); INR 2.73 (0.87-1.13); PROTHROMBIN TIME 31.1 SECS (9.5-12.7)
--- NOTE | 2016-10-02 07:00 | NUR ---
ICU INITIAL NOTES RECEIVED PT IN BED, ASLEEP, EASY TO AROUSE, PT IS ON BIPAP 18/5 RATE 14 FIO2 30%, SATING WELL, NO S/S OF RESP.DISTRESS OR SOB NOTED AT THIS TIME, PT IS ON BEDSIDE MONITOR SHOWING CONTROLLED A-FIB, NO C/O OF DISCOMFORT OR CHEST PAIN, PT HAS MULTIPLE SKIN ISSUES NOTED, PT IS CURRENTLY NPO AT THIS TIME, PT HAS R HAND #20G, SL, RAC#18G, RUNNING AMIO @ 0.5MG/MIN, C/D/I/PATENT, FLUSHING WELL, NO S/S OF INFECTION/ INFILTRATION NOTED AT THIS TIME, ALL SAFETY MEASURES IN PLACE AT ALL TIMES, CALL LIGHT WITHIN EASY REACH, WILL MONITOR PT CLOSELY FOR CHANGES
[2016-10-02 08:10] LABS: EOSINOPHILS % (MANUAL) 1 % (0-4); LYMPHOCYTES % (MANUAL) 4 % (16-48); MONOCYTES % (MANUAL) 2 % (0-11.0); NEUTROPHILS % (MANUAL) 93 (42-76)
[2016-10-02] MEDS: CALCIUM CARBONATE (1250) 500 MG TABLET PO SCH ×3 (09:00→17:00)
[2016-10-02] MEDS: SERTRALINE HCL 25 MG TABLET PO SCH (09:00)
[2016-10-02] MEDS: FINASTERIDE (5 MG) 5 MG TABLET PO SCH (09:00)
[2016-10-02] MEDS: CHOLECALCIFEROL 1,000 UNIT TABLET (VIT D3) PO SCH (09:00)
[2016-10-02] MEDS: FLUTICASONE/VILANTEROL 1 EACH BLST.W.DEV IH SCH (09:00)
[2016-10-02] MEDS: PANTOPRAZOLE 40 MG VIAL IV SCH (10:18)
[2016-10-02] MEDS: MUPIROCIN OINT 2% 22 GM TUBE SCH ×2 (10:18→20:12)
[2016-10-02] MEDS: NITROGLYCERIN 30 GM TUBE TP SCH ×2 (10:18→20:12)
[2016-10-02] MEDS: NEOMY SULF/BACITRAC ZN/POLY 15 GM TUBE TP SCH (10:19)
[2016-10-02] MEDS: Z GUARD REMEDY 2 OZ OINT TP PRN (10:19)
[2016-10-02] MEDS: CADEXOMER IODINE 40 GM TUBE TP SCH (10:19)
[2016-10-02] MEDS: methylPREDNISolone SOD SUCC 125 MG/2ML VIAL IV SCH (10:20)
--- NOTE | 2016-10-02 11:28 | NUR ---
placed off bipap onto 4lpm.
--- NOTE | 2016-10-02 11:30 | NUR ---
ICU NOTES BIPAP REMOVED AND PLACED ON 4L NC,SATING 100%, PT HAS NO C/O OF RESP.DISTRESS OR SOB, WILL MONITOR CLOSELY
[2016-10-02] MEDS ORDERED: FUROSEMIDE 20 MG/2 ML VIAL IV SCH (12:30)
[2016-10-02] MEDS ORDERED: PHYTONADIONE 5 MG TABLET PO ONE (13:00)
[2016-10-02] MEDS ORDERED: VANCOMYCIN 1 GM in IV D5W 250 ML IV SCH ×3 (15:00)
[2016-10-02] MEDS: AMIODARONE 900 MG in IV D5W 482 ML IV PRN (15:55)
--- NOTE | 2016-10-02 17:16 | NUR ---
ICU NOTES REPORT GIVEN TO VENKATA ALONZO
[2016-10-02] MEDS: TAMSULOSIN 0.4 MG CAP.SR.24H PO SCH (17:22)
--- NOTE | 2016-10-02 20:00 | NUR ---
VICE PRESIDENT TAX - NOTES - RECEIVED PT IN BED, AWAKE ON 3L NC, O2SAT >99%, NO S/S OF RESP DISTRESS OR SOB NOTED AT THIS TIME, PT IS ON BEDSIDE MONITOR SHOWING CONTROLLED A-FIB 90S-100S, NO C/O OF DISCOMFORT OR CHEST PAIN, PT HAS MULTIPLE SKIN ISSUES NOTED, PT IS CURRENTLY NPO AT THIS TIME, PT HAS R HAND #20G, RAC#18G, RUNNING AMIO @ 0.5MG/MIN, C/D/I/PATENT, FLUSHING WELL, NO S/S OF INFECTION/ INFILTRATION NOTED AT THIS TIME, ALL SAFETY MEASURES IN PLACE AT ALL TIMES, CALL LIGHT WITHIN EASY REACH, WILL MONITOR PT CLOSELY FOR CHANGES
[2016-10-02] MEDS: ATORVASTATIN 10 MG TABLET PO SCH (21:55)
[2016-10-03] VITALS (20 sets, daily range): BP systolic 61–137; BP diastolic 31–77
[2016-10-03] MEDS: PIPERACILLIN /TAZOBACTAM 3.375 G in IV D5W 50 ML IV SCH ×3 (00:11→12:00)
[2016-10-03] MEDS: IPRATROPIUM NEB FS 0.5 MG/2.5 ML AMPUL.NEB NEB SCH ×2 (01:28→07:42)
[2016-10-03 04:53] LABS: CALCIUM, SERUM 8.3 mg/dL (8.5-10.1); CREATININE 1.4 mg/dL (0.6-1.3); GLUCOSE 136 mg/dL (74-106); UREA NITROGEN, BLOOD 56 mg/dL (7-18)
[2016-10-03 04:58] LABS: CARBON DIOXIDE 39 mmol/L (21-32); CHLORIDE 106 mmol/L (98-107); POTASSIUM 3.9 mmol/L (3.5-5.1); SODIUM SERUM 147 mmol/L (136-145)
[2016-10-03] MEDS: MEROPENEM 1 G in IV NS 0.9% 100 ML IV SCH (06:02)
--- NOTE | 2016-10-03 08:00 | NUR ---
CUP TRIMMING MACHINE OPERATOR; ASSESSMENT RECEIVED PT AWAKE AND ORIENTED X3, ABLE TO STATE NAME , YEAR AND MONTH. PT DENIES ANY PAIN AT THIS TIME. PT CURRENTLY ON NASAL CANULA 3L. SATURATION 95%. ENCOURAGING PT TO DEEP BREATH AND COUGH. PT IS INCONTINENT OF URINE WITH DIAPER ON. NO ACUTE DISTRESS NOTED WILL CONTINUE WITH PLAN OF CARE.
[2016-10-03] MEDS: FLUTICASONE/VILANTEROL 1 EACH BLST.W.DEV IH SCH (08:53)
[2016-10-03] MEDS: methylPREDNISolone SOD SUCC 125 MG/2ML VIAL IV SCH (08:53)
[2016-10-03] MEDS: PANTOPRAZOLE 40 MG VIAL IV SCH (08:53)
[2016-10-03] MEDS: MUPIROCIN OINT 2% 22 GM TUBE SCH (08:54)
[2016-10-03] MEDS: NITROGLYCERIN 30 GM TUBE TP SCH (08:54)
[2016-10-03] MEDS: DILTIAZEM HCL 30 MG TABLET PO SCH ×2 (08:54→12:00)
[2016-10-03] MEDS: CADEXOMER IODINE 40 GM TUBE TP SCH (08:55)
[2016-10-03] MEDS: NEOMY SULF/BACITRAC ZN/POLY 15 GM TUBE TP SCH (08:55)
[2016-10-03] MEDS: CALCIUM CARBONATE (1250) 500 MG TABLET PO SCH ×2 (09:00→12:23)
[2016-10-03] MEDS: FINASTERIDE (5 MG) 5 MG TABLET PO SCH (09:00)
[2016-10-03] MEDS: CHOLECALCIFEROL 1,000 UNIT TABLET (VIT D3) PO SCH (09:00)
[2016-10-03] MEDS: SERTRALINE HCL 25 MG TABLET PO SCH (09:00)
[2016-10-03 09:47] LABS: ABG OXYGEN SATURATION 92.7 % (92.0-98.5); ABG PH 7.419 (7.350-7.450); ABG PO2 67.7 mmHg (75.0-100.0); AaDO2 79.2 mmHg; COHb 0.7 % (0.5-1.5); MetHb 0.8 % (0.0-1.5); O2Hb 91.3 % (94.0-97.0); VENT MODE, BG N/C
--- NOTE | 2016-10-03 11:49 | NUR ---
MD PRIMARY DR. PUTNAM, H AT BEDSIDE ABLE TO GIVE UPDATES TO PTS DAUGHTER IN [place]. PT IS ABLE TO VERBALIZE PLACE AND TIME. PT VERBALIZING " I WANT TO ". PT STATES THAT HE NO LONGER WANTS MEDICATIONS OR BIPAP MACHINE. DR. PUTNAM ABLE TO SPEAK WITH PT AND DISCUSS OPTIONS. PT AGREES TO COMFORT CARE.
--- NOTE | 2016-10-03 13:28 | NUR ---
CULTURE ROOM WORKER; FAMILY AT BEDSIDE DAUGHTER, URSULA, SON BRAYAN WITH SIGNIFICANT OTHERS, ALL IN AGREEMENT FOR COMFORT CARE, AND WOULD LIKE TO START PT ON MORPHINE DRIP. DISCUSSED WITH FAMILY THAT I'M AWAITING ORDERS FRM DR. PUTNAM. DR. PUTNAM MADE AWARE OF FAMILY WISHES. PENDING ORDERS.
[2016-10-03] MEDS ORDERED: SCOPOLAMINE HBR 1 EA PATCH.TD72 TD SCH (14:00)
[2016-10-03] MEDS ORDERED: MORPHINE SULFATE 30 MG in IV NS 0.9% 28 ML, PCA TOTAL VOLUME 1 BAG IV PRN ×3 (14:00)
[2016-10-03] MEDS ORDERED: MORPHINE SULFATE INJ 2 MG/ML DISP.SYRIN IV PRN ×2 (14:00→15:00)
[2016-10-03] MEDS ORDERED: LORAZEPAM INJ 2 MG/ML VIAL IV PRN ×2 (14:30→16:30)
[2016-10-03] MEDS ORDERED: MORPHINE SULFATE PF DRIP 250 MG in IV D5W 240 ML IV PRN (14:30)
--- NOTE | 2016-10-03 16:45 | NUR ---
SPINNING MACHINE TENDER; TRANSFER TRANSFER PT TO [facility] VIA BED. REPORT GIVEN TO ROBLES RAMEY FOR CONTINUITY OF CARE. DISCUSSED REGARDING PT CODE STATUS AND PRN MORPHINE AND ATIVAN PUSHES. DAUGHTER AT BEDSIDE EXPLAINED POC. AND PENDING HOSPICE EVAL.
--- NOTE | 2016-10-03 17:00 | NUR ---
RN MS NOTES RECEIVED PATIENT FROM ICU DEPT VIA BED, PATIENT IS ALERT AND ORIENTED, NOTED WITH LABORED BREATHING, HR ELEVATED, FAMILY AT BEDSIDE, SKIN ASSESSMENT COMPLETED, PHOTOS ARE LAST TAKEN ON 10/02/16, WOUND TREATMENT RENDERED BY ICU NURSE, DRESSINGS DRY AND INTACT, FAMILY AT BEDSIDE, ALL NEEDS ATTENDED, WILL CONTINUE TO MONITOR.
--- NOTE | 2016-10-03 18:13 | NUR ---
RN MS NOTES PATIENT IN BED, ALERT AND ORIENTED, ON O2 AT 3LPM VIA NC WITH SPO2 OF 96%, BREATHING SLIGHTLY LABORED, MORPHINE ADMINISTERED AT 1729, EFFECTIVE, FAMILY AT BEDSIDE, PIV PATENT AND INTACT, FLUSHES WELL, HOSPICE CONSULT TONIGHT, ALL NEEDS ATTENDED AND MET, SAFETY MEASURES IN PLACED, CALL LIGHT WITHIN REACH, WILL ENDORSE TO FRONT COUNTER ATTENDANT FOR RENNY.
== END 2016-10-04 03:40 | disposition hospice, inpatient (51) | DRG 871 ==
LOC: ER 19:01 → ICU 21:04 → MED 10-03 16:47
PROVIDERS: ADMIT Nurse Practitioner Acute Care; ATTEND Nurse Practitioner Acute Care
PROC: 5A09357 Assistance with Respiratory Ventilation, Less than 24 Consecutive Hours, Continuous Positive Airway Pressure (ICD-10-PCS; principal; 2016-09-30)
DX: A41.9 Sepsis, unspecified organism (principal); J96.02 Acute respiratory failure with hypercapnia; I21.4 Non-ST elevation (NSTEMI) myocardial infarction; N17.0 Acute kidney failure with tubular necrosis; I50.33 Acute on chronic diastolic (congestive) heart failure; J18.9 Pneumonia, unspecified organism; J96.21 Acute and chronic respiratory failure with hypoxia; J96.22 Acute and chronic respiratory failure with hypercapnia; R65.21 Severe sepsis with septic shock; L89.023 Pressure ulcer of left elbow, stage 3; D68.59 Other primary thrombophilia; E44.0 Moderate protein-calorie malnutrition; E87.0 Hyperosmolality and hypernatremia; E87.2 Acidosis; I47.1 Supraventricular tachycardia; I48.92 Unspecified atrial flutter; J44.0 Chronic obstructive pulmonary disease with (acute) lower respiratory infection; D68.9 Coagulation defect, unspecified; K92.2 Gastrointestinal hemorrhage, unspecified; Z51.5 Encounter for palliative care; R65.20 Severe sepsis without septic shock; Z66 Do not resuscitate; E78.5 Hyperlipidemia, unspecified; E86.0 Dehydration; I08.0 Rheumatic disorders of both mitral and aortic valves; I27.2 Other secondary pulmonary hypertension; I48.0 Paroxysmal atrial fibrillation; I65.29 Occlusion and stenosis of unspecified carotid artery; J84.10 Pulmonary fibrosis, unspecified; K76.1 Chronic passive congestion of liver; K21.9 Gastro-esophageal reflux disease without esophagitis; Z79.01 Long term (current) use of anticoagulants; Z79.899 Other long term (current) drug therapy; Z82.49 Family history of ischemic heart disease and other diseases of the circulatory system; Z90.49 Acquired absence of other specified parts of digestive tract; Z87.891 Personal history of nicotine dependence; Z99.81 Dependence on supplemental oxygen; Z88.1 Allergy status to other antibiotic agents; Z88.8 Allergy status to other drugs, medicaments and biological substances; I48.91 Unspecified atrial fibrillation; L89.629 Pressure ulcer of left heel, unspecified stage; S81.802A Unspecified open wound, left lower leg, initial encounter; X58.XXXA Exposure to other specified factors, initial encounter; Y92.129 Unspecified place in nursing home as the place of occurrence of the external cause; D63.8 Anemia in other chronic diseases classified elsewhere
CPT/HCPCS: 36415; 36600; 71010-TC; 80048-TC; 80061-TC; 80076-TC; 80202-TC; 81000-TC; 82728-TC; 82803-TC; 82962-TC; 83540-TC; 83605-TC; 83735-TC; 84100-TC; 84443-TC; 84484-TC; 85025-TC; 85396; 85610-TC; 85730-TC; 87040-TC; 87081-TC; 87086-TC; 92611-TC; 93307-TC; 93308-TC; 94762-TC; 94799-TC; A4216; A4606; A6253; A6402; A6403; C9113; J0153; J0282; J1160; J1940; J2060; J2185; J2270; J2274; J2543; J2930; J3370; J3490; J7030; J7040; J7050; J7060; Z7610

== ENCOUNTER 2016-10-03 20:51 | Inpatient (IN) | payer SELFPAY ==
[~2016-10-03] VITALS: Ht 172.7 cm; Wt 67.6 kg
[2016-10-03 20:00] VITALS: BP 61/31
--- NOTE | 2016-10-03 20:00 | NUR ---
RN OPENING NOTES PT TRANSFERRED TO HOSPICE STATUS. PT'S FAMILY AT BEDSIDE. PT BREATHING EVEN AND UNLABORED, ON 02 VIA NC AT 2LPM. NONVERBAL, SLIGHTLY OPEN EYES TO PAIN, UNABLE TO FOLLOW COMMANDS. IV TO RIGHT HAND PATENT AND INTACT. IV TO RAC NOTED WELL. NO FACIAL GRIMACING OR S/S OF PAIN NOTED AT THIS TIME. HOB ELEVATED. EXTREMITIES OFFLOADED. BED IN LOW/LOCKED POSITION WITH CALL LIGHT IN REACH. SIDE RAILS UPX2. FAMILY UPDATED REGARDING PLAN OF CARE AND KEEPING PT COMFORTABLE. WILL CONTINUE TO MONITOR
[~2016-10-03 20:51] MED LIST: ATOR20TA PO; CALC500T3 PO; CHOL200026 PO; FINA5TAB4 PO; FLUT1BLS IH; FURO20TA4 PO; LORA0.5T PO; METO-306 PO; OMEP20CA10 PO; SERT25TA PO; TAMS-12 PO; WARF3TAB29 PO
[2016-10-03] MEDS ORDERED: MORPHINE SULFATE INJ 2 MG/ML DISP.SYRIN IV PRN (22:30)
[2016-10-03] MEDS ORDERED: LORAZEPAM INJ 2 MG/ML VIAL IV PRN (22:30)
[2016-10-03] MEDS ORDERED: LORAZEPAM INJ 2 MG/ML VIAL ONE (23:37)
[2016-10-04] MEDS ORDERED: MORPHINE SULFATE INJ 2 MG/ML DISP.SYRIN ONE (01:40)
--- NOTE | 2016-10-04 03:45 | NUR ---
RN NOTE: PATIENT NO LONGER BREATHING, NO HEART RATE, NO VITALS OBTAINED, NO EYE REACTION TO LIGHT. VERIFIED WITH PRIMARY NURSE TANVIR JULES, PATIENT AT 0340.
[2016-10-04] MEDS ORDERED: MORPHINE SULFATE INJ 4 MG/ML DISP.SYRIN IV PRN (09:37)
== END 2016-10-04 03:40 | disposition expired | DRG 189 ==
LOC: HOSPICE 20:51
PROVIDERS: ADMIT Nurse Practitioner Acute Care; ATTEND Nurse Practitioner Acute Care
DX: J96.20 Acute and chronic respiratory failure, unspecified whether with hypoxia or hypercapnia (principal); A41.9 Sepsis, unspecified organism; R65.20 Severe sepsis without septic shock; J18.9 Pneumonia, unspecified organism; I21.4 Non-ST elevation (NSTEMI) myocardial infarction; N17.0 Acute kidney failure with tubular necrosis; D68.59 Other primary thrombophilia; E44.0 Moderate protein-calorie malnutrition; I47.1 Supraventricular tachycardia; I50.32 Chronic diastolic (congestive) heart failure; I27.2 Other secondary pulmonary hypertension; I35.0 Nonrheumatic aortic (valve) stenosis; I48.0 Paroxysmal atrial fibrillation; I65.29 Occlusion and stenosis of unspecified carotid artery; J44.9 Chronic obstructive pulmonary disease, unspecified; J84.10 Pulmonary fibrosis, unspecified; K21.9 Gastro-esophageal reflux disease without esophagitis; Z99.81 Dependence on supplemental oxygen; D63.8 Anemia in other chronic diseases classified elsewhere; T14.8 Other injury of unspecified body region; X58.XXXD Exposure to other specified factors, subsequent encounter
CPT/HCPCS: J2060; J2270